=== PATIENT | male | born 1965 | race Caucasian/White ===

== ENCOUNTER → 2024-01-05 06:21 | Outpatient (REF) | payer BC, SELFPAY ==
[2024-01-05 07:00] LABS: % Basophils 1.3 % (0-2); % Eosinophils 4.8 % (0-6); % Immature Granulocytes 0.3 % (0-0.5); % Lymphocytes 36.8 % (20.5-51.1); % Monocytes 11.4 % (1.7-9.3); % Neutrophils 45.4 % (42.2-75.2); Absolute Basophils 0.1 10^3/uL (0-0.2); Absolute Eosinophils 0.2 10^3/uL (0-0.7); Absolute Lymphocytes 1.4 10^3/uL (1.2-3.4); Absolute Monocytes 0.4 10^3/uL (0.1-0.6); Absolute Neutrophils 1.7 10^3/uL (1.4-6.5); Hematocrit 43.1 % (39.0-52.0); Hemoglobin 15.2 g/dL (13.0-18.0); Mean Corp Hgb Conc. 35.3 g/dL (33.0-37.0); Mean Corpuscular Hgb 31.5 pg (27.0-31.0); Mean Corpuscular Volume 89.4 fL (80.0-94.0); Mean Platelet Volume 10.1 fL (7.4-10.4); Nucleated Red Blood Cells % 0 % (-); Platelet Count 274 10^3/uL (130-400); Red Blood Cell Count 4.82 10^6/uL (4.70-6.10); Red Cell Dist. Width 12.6 % (11.5-14.5); White Blood Cell Count 3.8 10^3/uL (4.8-10.8)
[2024-01-05 07:25] LABS: ALT (SGPT) 21 U/L (0-50); AST (SGOT) 31 U/L (17-59); Albumin 4.7 g/dl (3.5-5.0); Alkaline Phosphatase 62 U/L (38-126); Blood Urea Nitrogen 11 mg/dl (9-20); Calcium 9.6 mg/dl (8.4-10.2); Carbon Dioxide 25 mmol/L (22-30); Chloride 104 mmol/L (98-107); Glucose 94 mg/dl (70-99); HDL Cholesterol 81 mg/dl; LDL Cholesterol, Calculated 143 mg/dl; Potassium 4.7 mmol/L (3.5-5.1); Sodium 139 mmol/L (135-145); Total Bilirubin 0.6 mg/dl (0.2-1.3); Total Cholesterol 262 mg/dl (50-199); Total Protein 7.4 g/dl (6.3-8.2); Triglyceride 193 mg/dl (10-149); Very Low Density Lipoprotein 38 mg/dl (0-30); eGFR > 60.00
[2024-01-05 07:57] LABS: PSA, Total - Screen 0.46 ng/ml (0.0-4.0); TSH Reflex To Free T4 2.45 uIU/ml (0.47-4.68)
== END ==
LOC: REG 06:21
PROVIDERS: ATTENDING PHYSICIAN Nurse Practitioner Adult Health
DX: Z00.00 Encounter for general adult medical examination without abnormal findings (principal); I10 Essential (primary) hypertension; E78.2 Mixed hyperlipidemia; Z12.5 Encounter for screening for malignant neoplasm of prostate
CPT/HCPCS: 36415; 80053; 80061; 84443; 85025; G0103

== ENCOUNTER → 2024-09-20 06:24 | Outpatient (REF) | payer BC, SELFPAY ==
[2024-09-20 08:16] LABS: ALT (SGPT) 31 U/L (0-50); AST (SGOT) 34 U/L (17-59); Albumin 4.6 g/dl (3.5-5.0); Alkaline Phosphatase 63 U/L (38-126); Blood Urea Nitrogen 15 mg/dl (9-20); Calcium 9.8 mg/dl (8.4-10.2); Carbon Dioxide 29 mmol/L (22-30); Chloride 105 mmol/L (98-107); Glucose 98 mg/dl (70-99); HDL Cholesterol 89 mg/dl; LDL Cholesterol, Calculated 86 mg/dl; Potassium 5.4 mmol/L (3.5-5.1); Sodium 145 mmol/L (135-145); Total Bilirubin 0.5 mg/dl (0.2-1.3); Total Cholesterol 193 mg/dl (50-199); Total Protein 7.3 g/dl (6.3-8.2); Triglyceride 93 mg/dl (10-149); Very Low Density Lipoprotein 18 mg/dl (0-30); eGFR > 60.00
== END ==
LOC: REG 06:24
PROVIDERS: ATTENDING PHYSICIAN Nurse Practitioner Adult Health
DX: I10 Essential (primary) hypertension (principal); E78.2 Mixed hyperlipidemia
CPT/HCPCS: 36415; 80053; 80061

== ENCOUNTER → 2024-09-22 15:30 | Outpatient (REF) | payer BC, SELFPAY | LOC: PAVMRI 15:30 | PROVIDERS: ATTENDING PHYSICIAN Nurse Practitioner Adult Health | DX: M51.360 Other intervertebral disc degeneration, lumbar region with discogenic back pain only (principal); M48.061 Spinal stenosis, lumbar region without neurogenic claudication; G89.29 Other chronic pain; M54.50 Low back pain, unspecified; R20.2 Paresthesia of skin | CPT/HCPCS: 72148 ==

== ENCOUNTER 2024-11-04 07:23 | Emergency (ER) | payer BC, SELFPAY ==
[2024-11-04] VITALS (7 sets, daily range): BP systolic 131–164; BP diastolic 82–102
[2024-11-04 08:24] LABS: % Basophils 2.3 % (0-2); % Eosinophils 3.2 % (0-6); % Immature Granulocytes 0.6 % (0-0.5); % Lymphocytes 31.9 % (20.5-51.1); % Monocytes 8.4 % (1.7-9.3); % Neutrophils 53.6 % (42.2-75.2); Absolute Basophils 0.1 10^3/uL (0-0.2); Absolute Eosinophils 0.1 10^3/uL (0-0.7); Absolute Monocytes 0.3 10^3/uL (0.1-0.6); Absolute Neutrophils 1.7 10^3/uL (1.4-6.5); Hematocrit 43.6 % (39.0-52.0); Hemoglobin 15.4 g/dL (13.0-18.0); Mean Corp Hgb Conc. 35.3 g/dL (33.0-37.0); Mean Corpuscular Hgb 31.6 pg (27.0-31.0); Mean Corpuscular Volume 89.3 fL (80.0-94.0); Nucleated Red Blood Cells % 0 % (-); Platelet Count 275 10^3/uL (130-400); Red Blood Cell Count 4.88 10^6/uL (4.70-6.10); Red Cell Dist. Width 12.1 % (11.5-14.5); White Blood Cell Count 3.1 10^3/uL (4.8-10.8)
--- NOTE | 2024-11-04 08:29 | ED.GENMED ---
History of Present Illness
General
Chief Complaint: Facial Problem
Source: patient
Exam Limitations: none
Time Seen by Provider: 11/04/24 07:58
Nursing documentation reviewed up to this point in time: agreed with
History of Present Illness
History of Present Illness:
59-year-old male with past medical history of hypertension, hyperlipidemia who presents to the emergency department with his for evaluation of left facial paresthesias. Patient reports that he had an episode yesterday morning while he was
getting ready for work�he describes feeling a 'cold' sensation in the left upper lip that radiated towards the cheek, eye and eventually towards the top of his head on the left. It lasted for about 30 minutes and then resolved without intervention.
He had some clamminess/cold sweats with the symptoms but no other associated symptoms. This morning while at work he had almost identical episode although he says this morning he did not feel sweaty/clammy. He says that he also had some tingling
in the left shoulder this morning. He has never had the symptoms before and decided to come to the emergency room to be evaluated. Symptoms have resolved he currently is asymptomatic. He says he did not have any associated chest pain, shortness
of breath, palpitations. He did not have any associated headache, change in his vision or speech; saw episode yesterday says that he did not have any facial droop. He did not have any weakness or numbness in his extremities aside from some
chronic numbness in the left thigh related to a low back issue. He denies any other complaints.
Review of Systems
Review of Systems
All Other Systems: ROS reviewed and negative except as documented in HPI and ROS
Constitutional: Denies fever
Respiratory: Denies cough or trouble breathing
Cardiac: Denies chest pain or palpitations
ABD/GI: Denies abdominal pain, nausea or vomiting
: Denies flank pain
Musculoskeletal: Denies neck pain or back pain
Neurological: Reports other (Left facial paresthesias, left shoulder paresthesia); Denies dizzy or headache
Phy Exam
Physical Exam
Physical Exam:
General: Awake, alert; no acute distress
Head: Normocephalic, atraumatic
Eyes: Conjunctiva normal
Throat: Airway intact, handling secretions
Neck: Trachea midline, supple without meningismus
Lungs: Clear to auscultation bilaterally, no wheezing, rales, rhonchi
Heart: Regular rate and rhythm, no murmurs, gallops, or rubs
Abd: Soft, non distended, nontender
Neuro: Cranial nerves intact 2 through 12, speech fluid without dysarthria or aphasia, motor and sensory intact in all extremities
Extremities: No edema in extremities, equal pulses in all extremities
Scores
Heart Failure Risk
Heart Failure Risk Score: Not Applicable
Heart Score for Chest Pain Patients
STEMI patient?: Not applicable
Withdrawal Assessment of Alcohol
Withdrawal Assessment Completed?: Not applicable
Course
Orders/Labs/Results
Orders:
Orders
11/04/24 08:11
Electrocardiogram (*1) Urgent
Reason for Study: Other
Other Reason for Exam: shoulder pain
EKG- Treatment ONCE
11/04/24 08:13
Complete Blood Count/With Diff Urgent
Comprehensive Metabolic Panel Urgent
Magnesium Urgent
TSH Reflex To Free T4 Urgent
Troponin I Urgent
11/04/24 08:15
CT Head W/o Iv Contrast Urgent
Comment:
Reason For Exam: left facial numbness/tingling
11/04/24 10:21
Aspirin Chewable [Low Strength Aspirin] 324 mg PO NOW STA
Clopidogrel Bisulfate [Plavix] 300 mg PO NOW STA
11/04/24 10:38
NEUROLOGY CONSULT Urgent
Consulting Provider: Sebastien Lyon
Was physician already notified: Yes
11/04/24 10:45
EEG Routine Routine
Reason for Exam: ? CPS
Neurology Consult:: DR. OLIVER
11/04/24 10:46
US Cerebrovascular Routine
Comment:
Reason For Exam: stenosis
Abnormal Lab Results
11/04/24
08:13
WBC 3.1 L 10^3/uL
(4.8-10.8)
MCH 31.6 H pg
(27.0-31.0)
Absolute Lymphs (auto) 1.0 L 10^3/uL
(1.2-3.4)
Immature Gran % 0.6 H %
(0-0.5)
Basophils % 2.3 H %
(0-2)
Glucose 108 H mg/dl
(70-99)
Total Protein 9.0 H g/dl
(6.3-8.2)
Albumin 5.5 H g/dl
(3.5-5.0)
11/04/24 08:13
11/04/24 08:13
Vital Signs
Initial and Last Documented VS:
Initial Vital Signs
Temp Pulse Resp BP Pulse Ox
36.7 C 81 16 164/102 98
11/04/24 07:27 11/04/24 07:27 11/04/24 07:27 11/04/24 07:27 11/04/24 07:27
Last Documented Vital Signs
Temp Pulse Resp BP Pulse Ox
36.7 C 78 17 137/85 96
11/04/24 07:27 11/04/24 12:00 11/04/24 12:00 11/04/24 12:00 11/04/24 12:00
MDM/Problems Addressed
Differential Diagnosis Includes:
Electrolyte derangement, brain mass, TIA, anxiety, complex migraine, atypical seizures
MDM/Problems Addressed:
59-year-old male presents for evaluation of left facial paresthesias�2 episodes as described above. Today also had some associated tingling in the left shoulder. Currently asymptomatic. Hypertensive otherwise normal vitals. Physical exam as
above. EKG shows sinus rhythm. Plan to place an IV check labs including a CBC and a CMP. Check troponin, thyroid studies. Check CT head. Will monitor and reassess after the above.
Labs reviewed: CBC shows marginal leukopenia no other clinical significant abnormalities. CMP within acceptable range. Troponin undetectable. Thyroid studies normal. CT head shows no acute abnormalities. Patient remains asymptomatic on clinical
reassessment. Very low suspicion that these episodes represent a TIA based on his description of the events--describes more vague cold sensation rather than numbness, no weakness or facial droop or any other neurologic symptoms. Symptoms could be
complex migraine or focal seizures. Will discuss with neurology for consultation.
Discussed with neurology�suspect likely simple partial seizure or migraine aura but given risk factors would treat as TIA with 21 days of aspirin and Plavix. Will perform EEG and ultrasound of the carotids here and if normal plan for discharge and
outpatient MRI and follow-up.
Discussed with neurology�EEG reportedly normal. Ultrasound pending.
Ultrasound shows less than 50% stenosis in the right carotid bulb, no significant plaque in the left carotid bulb. Discussed with neurology�very low suspicion that this was a TIA but given his risk factors we will treat as such with aspirin and
Plavix. Outpatient follow-up with PCP and neurology and plan for outpatient MRI. Patient is very comfortable with this plan. All questions answered.
Chronic conditions affecting care:
Hypertension, hyperlipidemia
Acute Exacerbation and/or Progression of Chronic Illness:
Acutely hypertensive
Acute Exacerbation and/or Progression of Chronic Illness: HTN
*Radiology
Radiology exam reviewed: radiology read reviewed
*Pulse Oximetry
Patient hypoxic: no
*EKG
Interpreted by ED Provider?: Yes
Heart Rate: 77
Rate: normal
Rhythm: sinus
[place]: normal axis
Interval: normal interval
QRS Pattern: normal QRS
Ischemia: no ischemia
*Critical Care Note
Total Time (30-74mins, 75-104mins- exclusive of procedures): Not Applicable
Data Reviewed
Source: patient and spouse
Patient Management
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
ED Attending Note
-
Portions of this chart may have been created with voice recognition software.� Occasional wrong word or��sound alike� substitutions may have occurred due to the inherent limitations of voice recognition software.
Discharge Plan
Departure
Patient Disposition: Home (Routine Discharge)
Date of Disposition: 11/04/24
Time of Disposition: 13:28
Patient with high blood pressure during this ER visit?: Yes
Discharge Problem:
Facial paresthesia
Instructions: Transient Ischemic Attack ED
Prescriptions:
New
clopidogrel [Plavix] 75 mg tablet
75 mg PO DAILY 21 Days Qty: 21 0RF
aspirin 81 mg tablet
81 mg PO DAILY Qty: 90 0RF
Referrals:
Kody Oliver MD [Active] - Call in 1-3 days for appt
Ricarda Cavanaugh MD [Family Provider] - Call in 1-3 days for appt
Activity Restrictions/Additional Instructions:
Thank you for visiting the Emergency Department at [facility].
1. Please schedule a follow up appointment as directed. Call first thing tomorrow morning to make an appointment.
2. If indicated, please take your medications as instructed and indicated on discharge paperwork.
3. If any of your symptoms do not improve, or persist, or become more severe within 6-12 hours, please return to the emergency department for further care.
4. Please return to the emergency department if you develop a headache, neck pain/stiffness, fever greater than 100.4F, chest pain, shortness of breath, persistent nausea, vomiting, slurred speech, difficulty walking, numbness/tingling, weakness,
signs of infection or any other symptoms that are worrisome to you.
Please call [phone] if you have any questions.
Interventions
Interventions:
*Risk Screen - Suicide Last Done: 11/04/24 07:27
*General Assessment Last Done: 11/04/24 07:45
*Neglect/Abuse Screening Last Done: 11/04/24 07:27
*ED- Fall Risk Assessment Last Done: 11/04/24 07:45
*ED COVID-19 Vaccine History Last Done: 11/04/24 07:45
ED- Neurological Assessment Last Done: 11/04/24 07:45
ED-Skin Assessment Last Done: 11/04/24 07:45
Discharge Date and Time
Print Language: STATELESS
[2024-11-04 08:36] LABS: ALT (SGPT) 37 U/L (0-50); AST (SGOT) 35 U/L (17-59); Albumin 5.5 g/dl (3.5-5.0); Alkaline Phosphatase 64 U/L (38-126); Blood Urea Nitrogen 16 mg/dl (9-20); Carbon Dioxide 26 mmol/L (22-30); Chloride 105 mmol/L (98-107); Glucose 108 mg/dl (70-99); Magnesium 1.9 mg/dl (1.6-2.3); Potassium 4.6 mmol/L (3.5-5.1); Sodium 142 mmol/L (135-145); eGFR > 60.00
[2024-11-04 08:47] LABS: Troponin I < 0.012 ng/ml
[2024-11-04 09:23] LABS: TSH Reflex To Free T4 1.83 uIU/ml (0.47-4.68)
[2024-11-04] MEDS: PLAVIX 300 MG PO (10:34)
[2024-11-04] MEDS: LOW STRENGTH ASPIRIN 324 MG PO (10:34)
--- NOTE | 2024-11-04 10:45 | CON.NEURO ---
Addendum entered and electronically signed by Sebastien Lyon MD 11/04/24 13:35:
EEG was normal
carotid ultrasound PSV right prox CCA 125, mid CCA 129, left prox CCA 125; these are right at the cutoff for 50% stenosis of 125 cm/s;
or it could be that this is over-estimate by velocity criteria; with HDL 89, LDL 86, I would increase Lipitor to 20;
I don't believe vascular intervention, CTA or MRA is indicated;
discussed with patient and
Original Note:
Neuro Assessment/Plan
Assessment
59 year old man with paroxysmal event. more likely to be simple partial seizure or migraine aura (electrical problem) given the history of paresthesias that start in one place and then spreads.
However TIA is certainly the more concerning though less likely with this history
I would load ASA and Plavix, and do 21 days of DAPT followed by ASA 81 alone; continue atorvastatin 10;
would not treat with anti seizure drugs
the more times it happens the exact same way the more likely this is simple partial seizure or migraine aura, if it it happens 10 times it would be confirmed
check EEG and carotid ultrasound then he can be discharged; he wants to go back to work
outpatient brain MRI with and w/o contrast
Consultation
Order
Date of Consultation: 11/04/24
Requesting Provider: Esteban Hooks Jr
Reason for Consult: facial paresthesia
Subjective/Objective
Subjective Data
Date of Service: November 04, 2024
fro ED notes:
59-year-old male with past medical history of hypertension, hyperlipidemia who presents to the emergency department with his for evaluation of left facial paresthesias. Patient reports that he had an episode yesterday morning while he was
getting ready for work�he describes feeling a 'cold' sensation in the left upper lip that radiated towards the cheek, eye and eventually towards the top of his head on the left. It lasted for about 30 minutes and then resolved without intervention.
He had some clamminess/cold sweats with the symptoms but no other associated symptoms. This morning while at work he had almost identical episode although he says this morning he did not feel sweaty/clammy. He says that he also had some tingling
in the left shoulder this morning. He has never had the symptoms before and decided to come to the emergency room to be evaluated. Symptoms have resolved he currently is asymptomatic. He says he did not have any associated chest pain, shortness
of breath, palpitations. He did not have any associated headache, change in his vision or speech; saw episode yesterday says that he did not have any facial droop. He did not have any weakness or numbness in his extremities aside from some
chronic numbness in the left thigh related to a low back issue. He denies any other complaints.
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
Objective Data
Vital Signs
Temp Pulse Resp BP Pulse Ox
36.7 C 70 17 131/83 98
11/04/24 07:27 11/04/24 10:00 11/04/24 10:00 11/04/24 10:00 11/04/24 10:00
Lab Results
11/04/24 08:13
11/04/24 08:13
Sodium 142 mmol/L (135-145) 11/04/24 08:13
Potassium 4.6 mmol/L (3.5-5.1) 11/04/24 08:13
BUN 16 mg/dl (9-20) 11/04/24 08:13
Glucose 108 mg/dl (70-99) H 11/04/24 08:13
Calcium 10.0 mg/dl (8.4-10.2) 11/04/24 08:13
Patient Allergies
No Known Allergies Allergy (Verified 11/04/24 07:30)
Physical Exam
-
AAOx3, speech clear, language intact,
VFF, EOMI, face symmetric
full strength b/l UE/LE
sensation intact to touch/pin/temp/vibration in face and b/l UE/LE
--- NOTE | 2024-11-04 12:08 | EEG.RPT ---
Electroencephalogram Report
Recording
Date of EE11/04/24
Type of EEG: Routine
Length of EEG recordin mins
Done with Video Recording: Yes
Patient Status: Emergency Room
Recording Conditions: Awake and Drowsy
Hyperventilation Performed: No
Photic Stimulation Performed: Yes
Hand Dominance: Right
Report
Clinical Background:�He is a 59 year old man with episodes of paresthesias spreading along the left side of his face
Introduction: A routine bedside EEG was done using [employer] 10-20 electrode placement protocol.
Background: In the most alert state, the PDR is 9-10 Hz in frequency with normal amplitude. There is spontaneous variability and reactivity.�
Sleep: No sleep is seen.�
Focal/epileptiform: There were no focal or epileptiform discharges. No clinical or electrographic seizures occurred during this recording.
Photic stimulation: resulted in normal driving response. There was no photo myogenic or photoparoxysmal response.�
Impression: Normal EEG
== END 2024-11-04 13:30 | disposition home or self-care (01) ==
LOC: EMR 07:23
PROVIDERS: CONSULT PHYSICIAN Psychiatry & Neurology Clinical Neurophysiology; EMERGENCY PHYSICIAN Emergency Medicine; FAMILY PHYSICIAN Internal Medicine
DX: R20.2 Paresthesia of skin (principal); I10 Essential (primary) hypertension; E78.5 Hyperlipidemia, unspecified
CPT/HCPCS: 99285; 70450; 80053; 83735; 84443; 84484; 85025; 93005; 93880; 95816